=== PATIENT | female | born 1960 | race Hispanic/Latino ===

== ENCOUNTER 2023-05-14 23:05 | Observation (INO) | payer MEDICARE, OTHER, SELFPAY ==
[2023-05-14 23:50] LABS: #Basophils 0.1 thou/uL (0.0-0.2); #Eosinphils 0.1 thou/uL (0.0-0.7); #Monocytes 0.5 thou/uL (0.11-0.59); #Neutrophils 4.4 thou/uL (1.40-6.50); %Basophils 0.9 % (0.0-1.0); %Eosinophils 1.2 % (0.0-10.0); %Lymphocytes 27.4 % (21.0-51.0); %Monocytes 7.6 % (0.0-10.0); %Neutrophils 62.8 % (42.0-75.0); Hematocrit 39.2 % (36.0-47.0); Hemoglobin 13.4 g/dL (12.0-16.0); Mean Corpuscular HGB CONC 34.2 g/dL (32.0-36.0); Mean Corpuscular Hemoglobin 32.5 pg (27.0-31.0); Mean Corpuscular Volume 95.1 fl (78.0-98.0); Mean Platelet Volume 10.8 fL (7.4-10.4); Platelet Count 255 10x3/uL (130-400); RBC Distribution Width 12.7 % (11.5-14.5); Red Blood Cell (RBC) Count 4.12 mill/uL (4.20-5.40); White Blood Cell (WBC) Count 6.9 10x3/uL (4.8-10.8)
[2023-05-15 00:17] LABS: Troponin I Less than 0.010 ng/mL (< 0.028)
[2023-05-15 00:20] LABS: ALT (SGPT) 16 U/L (8-55); AST (SGOT) 22 U/L (5-34); Albumin 4.2 g/dL (3.4-4.8); Alkaline Phosphatase 58 U/L (40-110); Anion Gap 16 mmol/L (10-20); BUN (Urea Nitrogen) 12 mg/dL (9.8-20.1); Bilirubin, Total 0.5 mg/dL (0.2-1.2); Calc. Creatinine Clearance 0 mL/min (70-130); Calcium 9.5 mg/dL (7.8-10.44); Carbon Dioxide 22 mmol/L (23-31); Chloride 102 mmol/L (98-107); Estimated GFR 88; Globulin 3.2 g/dL (2.4-3.5); Glucose 127 mg/dL (80-115); Magnesium 1.9 mg/dL (1.6-2.6); Potassium 3.7 mmol/L (3.5-5.1); Protein, Total 7.4 g/dL (5.8-8.1); Sodium 136 mmol/L (136-145)
[2023-05-15] MEDS ORDERED: Aspirin Chewable 81 MG TAB ONE (00:42)
[2023-05-15 02:05] LABS: Bacteria/HPF None Seen HPF (None Seen); Bilirubin Negative (Negative); Blood, Urine Negative (Negative); CAUTI Indications for Culture Alt mental st,lethar; Clarity Clear (Clear); Glucose, Urine (Dipstick) Normal (Negative); Ketone, Urine 20 mg/dL (Negative); Leukocyte Negative Leu/uL (Negative); Nitrite Negative (Negative); Protein, Urine (Dipstick) Negative (Neg-Trace); Specific Gravity, Urine 1.007 (1.002-1.036); Squamous Epithelial None Seen HPF (0-3); Urobilinogen Normal mg/dL (Less than 2); WBC/HPF 0-3 HPF (0-3); pH, Urine 6.5 (5.0-9.0)
[2023-05-15 02:11] LABS: Urine Culture Reflex No No
[2023-05-15] MEDS ORDERED: Calcium Carbonate 500 MG ChewTAB PO PRN (03:13)
[2023-05-15] MEDS ORDERED: Senokot S 8.6-50 MG TAB PO PRN (03:13)
[2023-05-15] MEDS ORDERED: Ondansetron ODT 4 MG TAB PO PRN (03:13)
[2023-05-15] MEDS ORDERED: Acetaminophen 325 MG TAB PO PRN (03:13)
[2023-05-15 04:05] LABS: Troponin I Less than 0.010 ng/mL (< 0.028)
[2023-05-15 07:03] LABS: Troponin I 0.019 ng/mL (< 0.028)
[2023-05-15 07:57] LABS: Hemoglobin A1c 5.9 % (4.0-6.0)
[2023-05-15] MEDS ORDERED: Famotidine 20 MG TAB ONE (08:16)
[2023-05-15] MEDS ORDERED: Famotidine 20 MG TAB PO SCH (09:00)
[2023-05-15 09:51] LABS: Amphetamine Not Detected (NotDetected); Barbiturates Screen Not Detected (NotDetected); Benzodiazepine Screen Not Detected (NotDetected); Cocaine Metabolite Screen Not Detected (NotDetected); Methadone Not Detected (NotDetected); Methamphetamine Not Detected (NotDetected); Opiate Screen Not Detected (NotDetected); Oxycodone Screen Not Detected (NotDetected); Phencyclidine (PCP) Not Detected (NotDetected); THC/Cannabinoid Screen Not Detected (NotDetected); Tricyclic Screen Not Detected (NotDetected)
[2023-05-15] MEDS ORDERED: busPIRone HCl 5 MG TAB PO PRN (10:10)
[2023-05-15] MEDS ORDERED: ADENOSINE 60 MG/20 ML SDV ONE (12:19)
[2023-05-15 14:30] VITALS: BP 143/72; TEMP 97.9
[2023-05-15 14:32] VITALS: BMI 25.4
[2023-05-15] MEDS ORDERED: Latanoprost 0.005% Ophth Soln 2.5 ml Bottle EA EYE SCH (21:00)
[2023-05-15] MEDS ORDERED: Atorvastatin Calcium 40 MG TAB PO SCH (21:00)
[2023-05-16] MEDS ORDERED: DULoxetine 30 MG CAP PO SCH (09:00)
[2023-05-16] MEDS ORDERED: Aspirin 81 mg Enteric Coated Tablet PO SCH (09:00)
[2023-05-16] MEDS ORDERED: Cetirizine HCl 10 MG TAB PO SCH (09:00)
[2023-05-16] MEDS ORDERED: Loratadine 10 MG TAB PO SCH (09:00)
== END 2023-05-15 15:24 | disposition home or self-care (01) ==
LOC: ERS 23:05 → ERHOLD 05-15 03:10 → 2SW 05-15 14:36
PROVIDERS: ADMIT Student in an Organized Health Care Education/Training Program; ATTEND Family Medicine
DX: I10 Essential (primary) hypertension (principal); F41.9 Anxiety disorder, unspecified; H40.9 Unspecified glaucoma; Z98.49 Cataract extraction status, unspecified eye; Z90.49 Acquired absence of other specified parts of digestive tract; R94.39 Abnormal result of other cardiovascular function study; Z88.5 Allergy status to narcotic agent; Z88.8 Allergy status to other drugs, medicaments and biological substances
CPT/HCPCS: 71045; 78452; 80053; 80306; 81001; 83036; 83735; 84443; 84484 ×3; 85025; 85379; 93005; 93017; 99285; A9502; G0378 ×2; 36415; J0153

== ENCOUNTER 2024-02-13 19:51 | Emergency (ER) | payer OTHER ==
[2024-02-13] MEDS ORDERED: Acetaminophen 500 MG TAB ONE (21:27)
[2024-02-13 21:48] LABS: #Basophils 0.03 10x3/uL (0.0-0.2); %Basophils 0.4 % (0.0-1.0); %Lymphocytes 27.4 % (21.0-51.0); %Neutrophils 62.1 % (42.0-75.0); Hemoglobin 13.5 g/dL (12.0-16.0); Mean Corpuscular HGB CONC 34.6 g/dL (32.0-36.0); Mean Corpuscular Hemoglobin 32.8 pg (27.0-31.0); Mean Corpuscular Volume 94.7 fL (78.0-98.0); Mean Platelet Volume 10.9 fL (7.4-10.4); Platelet Count 265 10x3/uL (130-400); RBC Distribution Width 12.4 % (11.5-14.5); Red Blood Cell (RBC) Count 4.12 mill/uL (4.20-5.40)
[2024-02-13 22:14] LABS: ALT (SGPT) 14 U/L (8-55); AST (SGOT) 15 U/L (5-34); Albumin 3.9 g/dL (3.4-4.8); Alkaline Phosphatase 61 U/L (40-110); Anion Gap 14 mmol/L (10-20); BUN (Urea Nitrogen) 11 mg/dL (9.8-20.1); Bilirubin, Total 0.3 mg/dL (0.2-1.2); Calc. Creatinine Clearance 0 mL/min (70-130); Calcium 9.7 mg/dL (7.8-10.44); Carbon Dioxide 25 mmol/L (23-31); Chloride 104 mmol/L (98-107); Estimated GFR 91; Glucose 109 mg/dL (80-115); Lipase 26 U/L (8-78); Potassium 3.9 mmol/L (3.5-5.1); Protein, Total 6.9 g/dL (5.8-8.1); Sodium 139 mmol/L (136-145)
[2024-02-13 22:18] LABS: Troponin I Less than 0.010 ng/mL (< 0.028)
[2024-02-13] MEDS ORDERED: Amlodipine 5 MG TAB ONE (23:52)
== END 2024-02-14 00:03 | disposition home or self-care (01) ==
LOC: ERS 19:51
DX: I10 Essential (primary) hypertension (principal); F41.9 Anxiety disorder, unspecified; Z55.6 Problems related to health literacy; Z75.3 Unavailability and inaccessibility of health-care facilities; Z79.899 Other long term (current) drug therapy
CPT/HCPCS: 36415; 71045; 80053; 83690; 84484; 85025; 93005